=== PATIENT | male | born 1990 | race Two or more races ===

== ENCOUNTER 2018-05-01 19:07 | Emergency (ER) | payer BC, OTHER ==
[~2018-05-01] VITALS: Ht 170.2 cm; Wt 98.9 kg
--- NOTE | 2018-05-01 20:29 | NUR ---
PT BIB SELF, COMPLAINING OF DRY COUGH X 2-3 DAYS, NON PRODUCTIVE, NO CHEST TIGHTNESS OR PAIN, NO RESPIRATORY DISTRESS
[2018-05-01 20:49] LABS: BASOPHILS # (AUTO) 0.2 /CMM (0.0-0.2); BASOPHILS % (AUTO) 1.8 % (0.0-2.0); EOSINOPHILS % (AUTO) 0.7 % (0.0-6.0); HEMATOCRIT 51 % (39-51); HEMOGLOBIN 16.8 g/dL (13.5-17.5); LYMPHOCYTES # (AUTO) 1.8 /CMM (0.8-4.8); LYMPHOCYTES % (AUTO) 20.6 % (20.0-44.0); MEAN CORPUSCULAR HEMOGLOBIN 28 PG (26.0-33.0); MEAN CORPUSCULAR HGB CONC 33 g/dl (31.0-36.0); MEAN CORPUSCULAR VOLUME 85 fL (80-96); MONOCYTES # (AUTO) 0.5 /CMM (0.1-1.30); NEUTROPHILS # (AUTO) 6.2 /CMM (1.8-8.9); NEUTROPHILS % (AUTO) 70.9 % (43.0-81.0); PLATELET COUNT (AUTO) 239 /CMM (150-450); RDW COEFFICIENT OF VARIATION 11.9 (11.5-15.0); RED BLOOD CELL COUNT(AUTO) 6.01 MIL/uL (4.5-6.0); WHITE BLOOD COUNT (AUTO) 8.8 K/uL (4.3-11.0)
[2018-05-01 21:00] LABS: CREATININE 1.2 mg/dL (0.6-1.3); POTASSIUM 3.8 mmol/L (3.5-5.1)
[2018-05-01 21:04] LABS: INR 0.95 (0.85-1.15)
[2018-05-01 21:06] LABS: ALBUMIN 4.6 g/dL (3.4-5.0); BILIRUBIN,DIRECT 0.1 mg/dL (0.0-0.2); BILIRUBIN,TOTAL 0.6 mg/dL (0.2-1.0)
[2018-05-01 21:46] LABS: APPEARANCE,URINE Clear (CLEAR); BILIRUBIN,URINE Negative (NEGATIVE); BLOOD, URINE Trace-intact Ery/uL (NEGATIVE); COLOR,URINE Yellow (YELLOW); KETONES,URINE 15 (NEGATIVE); LEUKOCYTE ESTERASE ,URINE Negative (NEGATIVE); NITRITE, URINE Negative (NEGATIVE); PROTEIN,URINE Negative (NEGATIVE); UGLUCOSE Negative (NEGATIVE); UROBILINOGEN,URINE 0.2 EU/dL (0.2)
[2018-05-01 21:54] LABS: BACTERIA,URINE Rare /HPF (None Seen); RBC,URINE 0-2 /HPF (0-2); SQUAMOUS EPITHELIAL CELL,UR Few /HPF (None Seen); WBC,URINE 0-2 /HPF (0-3)
[2018-05-01 22:15] LABS: MONOTEST NEGATIVE (NEGATIVE)
[2018-05-01] MEDS ORDERED: AMLODIPINE BESYLATE 5 MG TABLET ONE (22:49)
--- NOTE | 2018-05-01 22:50 | NUR ---
MEDICATED ORDERED. DENIES ANY SX'S AT THIS TIME.
--- NOTE | 2018-05-01 22:51 | NUR ---
BP 180/110; HR 61; R18; 100% RA
[2018-05-01] MEDS ORDERED: AMLODIPINE BESYLATE 5 MG TABLET PO ONE (23:00)
[2018-05-01] MEDS ORDERED: hydrALAZINE HCL 10 MG TABLET PO ONE (23:00)
[2018-05-01 23:27] VITALS: BP 180/110
--- NOTE | 2018-05-01 23:55 | NUR ---
Assumed d/c care only at this time. Denies CP/SOB/DIZZINESS/GUERRERO/N/V or any sx's at thsi time. States "I feel better after the medication i took". Patient discharged to home in stable condition. Written and verbal after care instructions given. Patient verbalizes understanding of instruction. Instructed to f/u with [facility].
[2018-05-02] MEDS ORDERED: AMLODIPINE BESYLATE 5 MG TABLET PO ONE
== END 2018-05-02 00:02 | disposition home or self-care (01) ==
LOC: ER 19:09
DX: J02.9 Acute pharyngitis, unspecified (principal); I10 Essential (primary) hypertension
CPT/HCPCS: 36415; 71045; 80048; 80076; 81001; 82962 ×2; 85025; 85730; 86308; 87070; 87880; 93005; 99285; A4606; Z7610; 81000-TC; 86403-TC